=== PATIENT | male | born 1985 | race American Indian/Alaskan Native ===

== ENCOUNTER 2020-07-27 17:26 | Emergency (ER) | payer SELFPAY ==
[2020-07-27] MEDS ORDERED: SODIUM CHLORIDE 0.9% 1000 ML 1,000 ML IV ONE (18:02)
[2020-07-27] MEDS ORDERED: methylPREDNISolone Sod Succinate 125 MG/2 ML INJ IV ONE (18:02)
--- NOTE | 2020-07-27 18:07 | Emergency Department Report ---
HPI - General Chief Complaint: Sore Throat Time Seen by Provider: 07/27/20 17:42 - HPI HPI: This is a 34-year-old -[place] male who presents to the emergency department with a complaint of a 2 to 3-day history of a sore throat, generalized fatigue and weakness, and a generalized headache. He says that he took some Benadryl for his symptoms without any relief. He denies any fever, cough, shortness of breath, vision change, slurred speech, numbness or paresthesias. He denies any past medical history. No recent travel or sick contacts at home. No known exposure to anyone with COVID-19. He is a tobacco smoker but denies any illicit drug use. Currently he rates his pains at a 9 out of 10 in intensity. No known alleviating factors. The patient is able to swallow but has increased pain with doing so. ED Past Medical Hx - Past Medical History Previous Medical History?: No Additional medical history: [facility] 2010 &2019 - Surgical History Past Surgical History?: No - Social History Smoking Status: Current Every Day Smoker - Medications Home Medications: Home Medications Medication Instructions Recorded Confirmed Last Taken Type Amoxicillin/Potassium Clav 1 each PO BID #14 tablet 07/27/20 Unknown Rx [Augmentin 875-125 Tablet] predniSONE [Deltasone] 20 mg PO QDAY #3 tab 07/27/20 Unknown Rx ED Review of Systems ROS: Stated complaint: THROAT PAIN/HEADACHE/WEAK Other details as noted in HPI Comment: All other systems reviewed and negative Constitutional: other (fatigue). denies: chills, fever Eyes: denies: eye pain, vision change ENT: throat pain. denies: ear pain Respiratory: denies: cough, shortness of breath Cardiovascular: denies: palpitations, edema Gastrointestinal: denies: abdominal pain, vomiting Genitourinary: denies: dysuria, discharge Musculoskeletal: denies: back pain, arthralgia Skin: denies: rash, lesions Neurological: headache. denies: numbness, paresthesias Physical Exam - Physical Exam Physical Exam: GENERAL: The patient is well-developed well-nourished. HENT: Normocephalic. Atraumatic. Patient has moist mucous membranes. There is bilateral tonsillar hypertrophy but no significant erythema and no exudates seen. No drooling or trismus. Poor dentition. EYES: Extraocular motions are intact. NECK: Supple. Trachea is midline. There is left-sided submandibular lymphadenopathy that is tender to palpation but mobile. CHEST/LUNGS: Clear to auscultation. There is no respiratory distress noted. HEART/CARDIOVASCULAR: Regular. There is no tachycardia. There is no murmur. ABDOMEN: Abdomen is soft, nontender. Patient has normal bowel sounds. SKIN: Skin is warm and dry. NEURO: The patient is awake, alert, and oriented. The patient is cooperative. The patient has no focal neurologic deficits. Normal speech. MUSCULOSKELETAL: There is no tenderness or deformity. There is no limitation range of motion. ED Medical Decision Making - Lab Data Result diagrams: 07/27/20 18:14 07/27/20 18:14 Lab Results 07/27/20 07/27/20 07/27/20 Range/Units 18:14 18:14 Unknown WBC 5.1 (4.5-11.0) K/mm3 RBC 4.84 (3.65-5.03) M/mm3 Hgb 14.7 (11.8-15.2) gm/dl Hct 44.8 (35.5-45.6) % MCV 93 (84-94) fl MCH 30 (28-32) pg MCHC 33 (32-34) % RDW 14.0 (13.2-15.2) % Plt Count 198 (140-440) K/mm3 Lymph % (Auto) 52.3 H (13.4-35.0) % [place] % (Auto) 10.7 H (0.0-7.3) % Eos % (Auto) 1.0 (0.0-4.3) % Baso % (Auto) 0.8 (0.0-1.8) % Lymph # (Auto) 2.6 (1.2-5.4) K/mm3 [place] # (Auto) 0.5 (0.0-0.8) K/mm3 Eos # (Auto) 0.1 (0.0-0.4) K/mm3 Baso # (Auto) 0.0 (0.0-0.1) K/mm3 Seg Neutrophils % 35.2 L (40.0-70.0) % Seg Neutrophils # 1.8 (1.8-7.7) K/mm3 Sodium 134 L (137-145) mmol/L Potassium 4.5 (3.6-5.0) mmol/L Chloride 100.4 (98-107) mmol/L Carbon Dioxide 24 (22-30) mmol/L Anion Gap 14 mmol/L BUN 7 L (9-20) mg/dL Creatinine 1.2 (0.8-1.3) mg/dL Estimated GFR > 60 ml/min BUN/Creatinine Ratio 6 % Glucose 72 L (75-100) mg/dL Calcium 9.1 (8.4-10.2) mg/dL Group A Strep Rapid Negative (Negative) - Medical Decision Making This patient presents to the emergency department with a complaint of a sore throat, painful swallowing, a mild generalized headache. On examination he has bilateral tonsil hypertrophy without significant erythema and no exudates. The patient has some poor dentition but no visible dental abscesses. There is no drooling or trismus. The patient has a normal voice. There does not appear to be any retropharyngeal swelling. His vital signs have been reassuring including being afebrile. Labs have been mostly unremarkable including CBC, metabolic panel, and the patient was negative on the rapid strep test. He was given IV fluid resuscitation, IV Solu-Medrol and IV antibiotics. Upon reevaluation he is feeling improved. The patient was able to drink apple juice without any difficulty and therefore passed a p.o. challenge. For all these reasons the patient appears safe for discharge home at this time. He has been given a prescription for steroids, antibiotics, and multiple outpatient referrals for primary care physicians. He will return to the emergency department with any worsening of his symptoms or with any acute distress. Critical Care Time: No Critical care attestation.: If time is entered above; I have spent that time in minutes in the direct care of this critically ill patient, excluding procedure time. ED Disposition Clinical Impression: Painful swallowing, Submandibular lymphadenopathy Pharyngitis Qualifiers: Pharyngitis/tonsillitis etiology: unspecified etiology Qualified Code(s): J02.9 - Acute pharyngitis, unspecified Disposition: TO HOME OR SELFCARE Is pt being admited?: No Condition: Stable Instructions: Pharyngitis, Lymphadenopathy Additional Instructions: Please follow-up with a primary care physician in the next few days. I will give you a referral for some local primary care physicians and a clinic. Take the medications as prescribed. You can take Tylenol every 4-6 hours and ibuprofen every 6-8 hours, using the dosing on the back of the bottle, as needed for any fever or discomfort. Please return to the closest emergency department with any worsening of your symptoms, inability to swallow your own secretions, inability to stay hydrated, a sustained fever despite treatment, change in your voice, development of chest pain or shortness of breath, or with any acute distress. Prescriptions: Amoxicillin/Potassium Clav [Augmentin 875-125 Tablet] 1 each PO BID #14 tablet predniSONE [Deltasone] 20 mg PO QDAY #3 tab Referrals: MAIN GAMBOA MD [Staff Physician] - 3-5 Days LOS PUTNAM MD [Staff Physician] - 3-5 Days DALLAS WEINER MD [Staff Physician] - 3-5 Days [facility] [Provider Group] - 3-5 Days Time of Disposition: 19:43
[2020-07-27 18:30] LABS: Basophils % (Auto) 0.8 % (0.0-1.8); Eosinophils # (Auto) 0.1 K/mm3 (0.0-0.4); Hematocrit 44.8 % (35.5-45.6); Hemoglobin 14.7 gm/dl (11.8-15.2); Lymphocytes # (Auto) 2.6 K/mm3 (1.2-5.4); Lymphocytes % (Auto) 52.3 % (13.4-35.0); Mean Corpuscular HGB Conc 33 % (32-34); Mean Corpuscular Volume 93 fl (84-94); Monocytes # (Auto) 0.5 K/mm3 (0.0-0.8); Monocytes % (Auto) 10.7 % (0.0-7.3); Platelet Count 198 K/mm3 (140-440); Red Blood Count 4.84 M/mm3 (3.65-5.03)
[2020-07-27 18:43] LABS: BUN/Creatinine Ratio 6; Blood Urea Nitrogen 7 mg/dL (9-20); Calcium 9.1 mg/dL (8.4-10.2); Hemolysis Index 6
[2020-07-27 18:54] VITALS: BP 138/97
== END 2020-07-27 20:09 | disposition home or self-care (01) ==
LOC: ED 17:26
DX: R59.1 Generalized enlarged lymph nodes (principal); J02.9 Acute pharyngitis, unspecified; F17.200 Nicotine dependence, unspecified, uncomplicated; Z79.899 Other long term (current) drug therapy
CPT/HCPCS: 36415; 80048; 85025; 87116; 87430; 96361; 96365; 96375; 99284; J2930; J7030